=== PATIENT | female | born 1960 | race Two or more races ===

== ENCOUNTER 2018-06-30 09:39 | Emergency (ER) | payer OTHER ==
[~2018-06-30] VITALS: Ht 157.5 cm; Wt 86.2 kg
[2018-06-30] MEDS ORDERED: MECLIZINE HCL 25 MG TAB PO ONE (10:15)
[2018-06-30 10:41] LABS: Basophils # (auto) 0 uL; Basophils % (auto) 0.7 % (0.0-2.0); Eosinophils # (auto) 0.1 uL; Eosinophils % (auto) 1.5 % (0.0-7.0); Hematocrit 42.3 % (36.0-46.0); Hemoglobin 14.4 g/dL (12.2-16.2); Lymphocytes # (auto) 2.3 uL; Lymphocytes % (auto) 34.7 % (10.0-50.0); Mean Corpuscular Hemoglobin 29.7 pg (28.0-32.0); Mean Corpuscular Hgb Conc. 34.1 g/dL (32.0-36.0); Mean Corpuscular Volume 87.1 fL (80.0-100.0); Monocytes # (auto) 0.4 uL; Monocytes % (auto) 6.2 % (0.0-12.0); Neutrophils # (auto) 3.8 uL; Neutrophils % (auto) 56.9 % (37.0-80.0); Nucleated Red Blood Cells % 0.1 %; Platelet Count (auto) 190 10^3/uL (140-450); Red Blood Cells 4.86 10^6/uL (4.0-5.20); White Blood Cell 6.6 10^3/uL (4.4-10.8)
[2018-06-30 11:12] LABS: Alanine Aminotransferase 56 U/L (13-56); Albumin 3.7 g/dL (3.4-5.0); Alkaline Phosphatase 125 U/L (45-117); Anion Gap 5 (5-15); Aspartate Aminotransferase 44 U/L (15-37); BUN/Creatinine Ratio 15.7; Bilirubin, Total 0.9 mg/dL (0.2-1.0); Blood Urea Nitrogen 11 mg/dL (7-18); Calcium 8.3 mg/dL (8.5-10.1); Carbon Dioxide 25 mmol/L (21-32); Chloride 106 mmol/L (98-107); GFR African American 112 mL/min; GFR Non-African American 92 mL/min; Glucose 265 mg/dL (74-106); Potassium 3.7 mmol/L (3.5-5.1); Sodium 136 mmol/L (136-145); Total Protein 7.9 g/dL (6.4-8.2)
[2018-06-30 13:00] VITALS: BP 137/90
== END 2018-06-30 11:56 | disposition home or self-care (01) ==
LOC: ER 09:39
DX: R42 Dizziness and giddiness (principal); E11.9 Type 2 diabetes mellitus without complications; I10 Essential (primary) hypertension
CPT/HCPCS: 36415; 70450; 80053; 84484; 85025; 93005; 99285; J8597

== ENCOUNTER 2020-09-09 17:21 | Emergency (ER) | payer MEDICAID, OTHER ==
[~2020-09-09] VITALS: Ht 157.5 cm; Wt 81.6 kg
[2020-09-09 17:47] VITALS: BP 153/98
== END 2020-09-09 19:06 | disposition home or self-care (01) ==
LOC: ER 17:21
DX: J06.9 Acute upper respiratory infection, unspecified (principal); F41.9 Anxiety disorder, unspecified; E11.9 Type 2 diabetes mellitus without complications; I10 Essential (primary) hypertension; Z98.890 Other specified postprocedural states; Z20.828 Contact with and (suspected) exposure to other viral communicable diseases
CPT/HCPCS: 36415; 71045; 87426; 93005

== ENCOUNTER 2024-07-10 11:28 | Inpatient (IN) | payer MEDICAID ==
[~2024-07-10] VITALS: Ht 157.5 cm; Wt 71.0 kg
[2024-07-10 13:44] LABS: Urine Bacteria None Seen /hpf (None Seen)
[2024-07-10 13:56] LABS: Basophils # (auto) 0 10 ^3/uL (0-0.2); Basophils % (auto) 0.8 % (0.0-2.0); Eosinophils # (auto) 0.3 10 ^3/uL (0-0.8); Eosinophils % (auto) 5.1 % (0.0-7.0); Hematocrit 37.9 % (36.0-46.0); Hemoglobin 13.1 g/dL (12.2-16.2); Lymphocytes # (auto) 1.1 10 ^3/uL (0.4-5.4); Lymphocytes % (auto) 17.2 % (10.0-50.0); Mean Corpuscular Hemoglobin 30.2 pg (28.0-32.0); Mean Corpuscular Hgb Conc. 34.6 g/dL (32.0-36.0); Mean Corpuscular Volume 87.3 fL (80.0-100.0); Monocytes # (auto) 0.4 10 ^3/uL (0-1.3); Monocytes % (auto) 5.9 % (0.0-12.0); Neutrophils # (auto) 4.6 10 ^3/uL (1.6-8.6); Platelet Count (auto) 301 10^3/uL (140-450); Red Blood Cells 4.34 10^6/uL (4.0-5.20); Red Cell Distribution Width 12.9 % (11.8-14.3); White Blood Cell 6.4 10^3/uL (4.4-10.8)
[2024-07-10 13:59] LABS: Urine Blood Negative /uL (Negative); Urine Clarity Clear (Clear); Urine Color Light-Yellow (Yellow); Urine Mucus FEW (None Seen); Urine Protein, UAD Negative (Negative); Urine Specific Gravity 1.018 (1.001-1.035); Urine Urobilinogen Normal (Negative); Urine WBC 1 /hpf (0 - 5); Urine pH 5.5 (5.0-9.0)
[2024-07-10 14:11] LABS: Alanine Aminotransferase 18 U/L (7-40); Albumin 3.8 g/dL (3.2-4.8); Alkaline Phosphatase 79 U/L (46-116); Anion Gap 6 (5-15); Aspartate Aminotransferase 20 U/L (13-40); BUN/Creatinine Ratio 17.5 (10.0-20.0); Bilirubin, Total 0.5 mg/dL (0.2-1.0); Blood Urea Nitrogen 10 mg/dL (9-23); Calcium 9.3 mg/dL (8.7-10.4); Carbon Dioxide 28 mmol/L (20-30); Chloride 104 mmol/L (98-107); Glucose 111 mg/dL (74-106); Potassium 4.2 mmol/L (3.5-5.1); Sodium 138 mmol/L (136-145); Total Protein 7.1 g/dL (5.7-8.2)
[2024-07-10 14:40] LABS: Lactic Acid w/Reflex 2.3 mmol/L (0.4-2.0)
[2024-07-10 15:08] LABS: COVID19 ANTIGEN SOFIA FIA NEGATIVE (NEGATIVE)
[2024-07-10] MEDS: cefTRIAXone 1GM/50ML D5W 50 ML IV ONE (15:24)
[2024-07-10] MEDS: SODIUM CHLORIDE 0.9% 1,000 ML IV ONE (17:09)
[2024-07-10] MEDS ORDERED: DEXTROSE (50%) 50ML SYRG IV PRN (19:00)
[2024-07-10] MEDS ORDERED: HYDROcodone-ACET 5/325MG TAB PO PRN (19:00)
[2024-07-10] MEDS ORDERED: hydrALAZINE HCL 20 MG/ML VL IV PRN (19:00)
[2024-07-10] MEDS ORDERED: ONDANSETRON HCL 4 MG/2 ML VIAL IV PRN (19:00)
[2024-07-10] MEDS ORDERED: ACETAMINOPHEN 325 MG TAB PO PRN (19:00)
[2024-07-10] MEDS ORDERED: DOCUSATE SOD 100 MG CAP PO PRN (19:00)
[2024-07-10] MEDS ORDERED: NITROGLYCERIN 0.4 MG SL TAB SL PRN (19:45)
[2024-07-10] MEDS ORDERED: MORPHINE SULFATE INJ 2 MG/ml SYRG IV PRN (19:45)
[2024-07-10 20:24] VITALS: PULSE 92; RESP 16; O2SAT 97
[2024-07-10] MEDS: SODIUM CHLORIDE 0.9% 1,000 ML IV SCH (20:24)
[2024-07-10] MEDS: ACCU-CHEK COMFORT CURVE STRIP VI SCH (22:00)
[2024-07-10] MEDS: InsuLIN REG 1unit/0.01ml Soln (100units/ml) SC SCH (22:37)
[2024-07-11] VITALS (11 sets, daily range): BP systolic 119–131; BP diastolic 61–90; PULSE 78–97; RESP 16–18; TEMP 97.9–98.3; O2SAT 94–97
[2024-07-11 05:40] LABS: Rapid Influenza A Negative (Negative); Rapid Influenza B Negative (Negative)
[2024-07-11] MEDS ORDERED: LEVALBUTEROL HCL 1.25 MG/3 ML NEB NEB PRN (07:45)
[2024-07-11] MEDS ORDERED: IPRATROPIUM BROM 0.5 MG/2.5ML INH SOL NEB PRN (07:45)
[2024-07-11] MEDS ORDERED: LEVALBUTEROL HCL 1.25 MG/3 ML NEB NEB SCH (07:45)
[2024-07-11] MEDS: cefTRIAXone 1GM/50ML D5W 50 ML IV SCH (09:00)
[2024-07-11] MEDS: AZITHROMYCIN 500MG/ 250ML 250 ML IV SCH (09:59)
[2024-07-11] MEDS: INSULIN LANTUS (GLARGINE) 1 /0.01ml (100units/ml) SC SCH (10:00)
[2024-07-11] MEDS: LOSARTAN POTASSIUM 50 MG TAB PO SCH (10:00)
[2024-07-11] MEDS: ASPirin 81 mg TAB PO SCH (10:00)
[2024-07-11 12:05] LABS: Alanine Aminotransferase 20 U/L (7-40); Albumin 3.2 g/dL (3.2-4.8); Alkaline Phosphatase 66 U/L (46-116); Anion Gap 6 (5-15); Aspartate Aminotransferase 18 U/L (13-40); BUN/Creatinine Ratio 16.7 (10.0-20.0); Blood Urea Nitrogen 10 mg/dL (9-23); Calcium 8.4 mg/dL (8.7-10.4); Carbon Dioxide 24 mmol/L (20-30); Chloride 107 mmol/L (98-107); Glucose 253 mg/dL (74-106); Potassium 3.6 mmol/L (3.5-5.1); Sodium 137 mmol/L (136-145)
[2024-07-11 12:06] LABS: Bilirubin, Total 0.4 mg/dL (0.2-1.0); Total Protein 6.3 g/dL (5.7-8.2)
[2024-07-11 12:16] LABS: Basophils # (auto) 0 10 ^3/uL (0-0.2); Basophils % (auto) 0.9 % (0.0-2.0); Eosinophils # (auto) 0.3 10 ^3/uL (0-0.8); Eosinophils % (auto) 5.3 % (0.0-7.0); Hematocrit 33.9 % (36.0-46.0); Hemoglobin 11.8 g/dL (12.2-16.2); Lymphocytes # (auto) 0.8 10 ^3/uL (0.4-5.4); Lymphocytes % (auto) 16.3 % (10.0-50.0); Mean Corpuscular Hemoglobin 30.4 pg (28.0-32.0); Mean Corpuscular Hgb Conc. 34.8 g/dL (32.0-36.0); Mean Corpuscular Volume 87.5 fL (80.0-100.0); Monocytes # (auto) 0.4 10 ^3/uL (0-1.3); Monocytes % (auto) 7.2 % (0.0-12.0); Neutrophils # (auto) 3.4 10 ^3/uL (1.6-8.6); Neutrophils % (auto) 70.3 % (37.0-80.0); Nucleated Red Blood Cells % 0.1 %; Platelet Count (auto) 270 10^3/uL (140-450); Red Blood Cells 3.88 10^6/uL (4.0-5.20); Red Cell Distribution Width 13.2 % (11.8-14.3); White Blood Cell 4.9 10^3/uL (4.4-10.8)
[2024-07-11] MEDS: methylPREDNISolone SOD SUCC 40 MG/ML VL IV SCH (13:07)
[2024-07-11] MEDS: DOXYCYCLINE 100MG/250ML 250 ML IV SCH (13:07)
[2024-07-11] MEDS: ERGOCALCIFEROL 50,000 UNIT(1.25MG) CAP PO SCH (16:57)
[2024-07-12] VITALS (7 sets, daily range): BP systolic 117–127; BP diastolic 72–77; PULSE 59–84; RESP 14–18; TEMP 97.6–98.7; O2SAT 95–100
[2024-07-12] MEDS ORDERED: POTASSIUM CHL 20MEQ/100ML 100 ML IV ONE (07:00)
[2024-07-12] MEDS: POTASSIUM CHL 10 Meq TABLET PO ONE (10:20)
[2024-07-12] MEDS: MAGNESIUM SULFATE 1GM/100ML 100 ML IV ONE (10:21)
[2024-07-12] MEDS: INSULIN LANTUS (GLARGINE) 1 /0.01ml (100units/ml) SC SCH (10:38)
[2024-07-12 10:50] LABS: Basophils # (auto) 0 10 ^3/uL (0-0.2); Basophils % (auto) 0.2 % (0.0-2.0); Eosinophils # (auto) 0 10 ^3/uL (0-0.8); Eosinophils % (auto) 0.1 % (0.0-7.0); Hematocrit 32.3 % (36.0-46.0); Hemoglobin 11.2 g/dL (12.2-16.2); Lymphocytes # (auto) 1.1 10 ^3/uL (0.4-5.4); Lymphocytes % (auto) 13.6 % (10.0-50.0); Mean Corpuscular Hemoglobin 30.3 pg (28.0-32.0); Mean Corpuscular Hgb Conc. 34.6 g/dL (32.0-36.0); Mean Corpuscular Volume 87.6 fL (80.0-100.0); Monocytes # (auto) 0.5 10 ^3/uL (0-1.3); Monocytes % (auto) 6.3 % (0.0-12.0); Neutrophils # (auto) 6.6 10 ^3/uL (1.6-8.6); Neutrophils % (auto) 79.8 % (37.0-80.0); Nucleated Red Blood Cells % 0.2 %; Platelet Count (auto) 272 10^3/uL (140-450); Red Blood Cells 3.68 10^6/uL (4.0-5.20); Red Cell Distribution Width 12.9 % (11.8-14.3); White Blood Cell 8.3 10^3/uL (4.4-10.8)
[2024-07-12 11:18] LABS: Anion Gap 6 (5-15); Carbon Dioxide 25 mmol/L (20-30); Chloride 105 mmol/L (98-107); Potassium 3.8 mmol/L (3.5-5.1); Sodium 136 mmol/L (136-145)
[2024-07-12 11:23] LABS: Glucose 261 mg/dL (74-106)
[2024-07-12 11:24] LABS: BUN/Creatinine Ratio 16.1 (10.0-20.0); Blood Alcohol < 3.0 mg/dL (<10); Blood Urea Nitrogen 10 mg/dL (9-23)
[2024-07-12 12:10] LABS: Urine Bacteria None Seen /hpf (None Seen); Urine WBC None Seen /hpf (0 - 5)
[2024-07-12 12:19] LABS: Urine Blood Negative /uL (Negative); Urine Clarity Clear (Clear); Urine Color Colorless (Yellow); Urine Protein, UAD Negative (Negative); Urine Specific Gravity 1.003 (1.001-1.035); Urine Urobilinogen Normal (Negative)
[2024-07-12 12:31] LABS: Amphetamine Screen, Urine Neg (NEGATIVE); Barbiturate Scree,Urine Neg (NEGATIVE); Benzodiazephine Screen, Urine Neg (NEGATIVE); Cocaine Screen, Urine Neg (NEGATIVE)
[2024-07-12 12:32] LABS: Cannabinoid Screen, Urine Neg (NEGATIVE); Opiate Scree,Urine Neg (NEGATIVE); Phencyclidine Screen, Urine Neg (NEGATIVE)
[2024-07-12] MEDS: InsuLIN REG 1unit/0.01ml Soln (100units/ml) SC SCH (13:04)
[2024-07-12] MEDS ORDERED: PRED20TA2 PO ×2 (15:27→15:28)
[2024-07-12] MEDS ORDERED: ERGO1CAP23 PO (15:27)
[2024-07-12] MEDS ORDERED: ACET-1882 PO (15:27)
[2024-07-12] MEDS ORDERED: ASPI-325 PO (15:27)
[2024-07-12] MEDS ORDERED: LOSA-534 PO (15:27)
[2024-07-12] MEDS ORDERED: AZIT-185 PO (15:27)
[2024-07-12] MEDS ORDERED: CEPH250C PO (15:27)
[2024-07-12] MEDS ORDERED: INSLANTI SC (15:27)
[2024-07-12] MEDS ORDERED: PANT40T PO (15:27)
[2024-07-12] MEDS ORDERED: InsuLIN REG 1unit/0.01ml Soln (100units/ml) SC SCH (22:00)
[2024-07-16 21:06] LABS: Legionella pneumophila Abs Non Reactive (Non Reactive); Mycoplasma pneumoniae IgG Ab 110 U/mL (0-99); Mycoplasma pneumoniae IgM Ab <770 U/mL (0-769)
== END 2024-07-12 18:27 | disposition home or self-care (01) | DRG 142 ==
LOC: ER 11:28 → TELE 19:38 → TELE-EAST 07-11 03:18 → EAST 07-11 09:02
PROVIDERS: ADMIT Internal Medicine Pulmonary Disease; ATTEND Emergency Medicine
DX: J82.82 Acute eosinophilic pneumonia (principal); J15.69 Pneumonia due to other Gram-negative bacteria; E87.20 Acidosis, unspecified; J84.89 Other specified interstitial pulmonary diseases; R91.1 Solitary pulmonary nodule; I10 Essential (primary) hypertension; I16.1 Hypertensive emergency; R79.89 Other specified abnormal findings of blood chemistry; E11.65 Type 2 diabetes mellitus with hyperglycemia; R06.03 Acute respiratory distress; E66.9 Obesity, unspecified; E55.9 Vitamin D deficiency, unspecified; Z20.822 Contact with and (suspected) exposure to COVID-19; Z68.28 Body mass index [BMI] 28.0-28.9, adult
CPT/HCPCS: 36415; 71045; 71275; 76604; 80048; 80053; 80307; 80320; 81001; 82306; 82607; 82962; 83036; 83605; 83735; 83880; 84484; 85025; 85379; 86703; 86738; 87081; 87278; 87426; 87804; 93970; G0378; J1815; J3490

== ENCOUNTER 2025-10-14 14:11 | Inpatient (IN) | payer MEDICAID ==
[~2025-10-14] VITALS: Ht 157.5 cm; Wt 78.0 kg
[~2025-10-14 14:11] MED LIST: ACET-1882 PO; ASPI-325 PO; AZIT-185 PO; CEPH250C PO; ERGO1CAP23 PO; INSLANTI SC; LOSA-534 PO; PANT40T PO; PRED20TA2 PO
--- NOTE | 2025-10-14 15:26 | ED.PDOC ---
SOB-HPI HPI Comments A 65 year old female with PMHx of DM and HTN presents to the emergency d [facility] for chief complaint of shortness of breath that began 3 days ago. Pt reports that they have chest pain, phlegm, and consistent cough. Patient denies associated symptoms dizziness, fever, headache, chills, or syncope. Chief Complaint: Shortness of Breath Time Seen by MD: 15:13 Primary Care Provider: DOES KNOW NAME Reviewed notes: Nurses Notes, Medications, Allergies Mode of Arrival: Ambulatory Severity: Moderate Timing: Hours Duration: Since onset Context: At Rest History of: None Prehospital treatment: None Associated Signs and Symptoms: None Quality: Pressure Radiation: No Radiation Past Medical History PAST MEDICAL HISTORY: DM, HTN Surgical History: PHARMACY INTERN History: Denies all PHARMACY INTERN Hx Family History Family History: Unknown Social History Smoker: Non-Smoker Alcohol: Denies ETOH Use Drugs: Denies Drug Use Lives In: Home Physical Exam General Appearance: Moderate Distress HEENT: Normal ENT Inspection, Pharynx Normal, TMs Normal Neck: Full Range of Motion, Non-Tender, Normal, Normal Inspection Respiratory: Chest Non-Tender, Lungs Clear, No Accessory Muscle Use, No Respiratory Distress, Normal Breath Sounds Cardiovascular: No Edema, No JVD, No Murmur, No Gallop, Normal Peripheral Pulses, Regular Rate/Rhythm Breast Exam: Deferred Gastrointestinal: No Organomegaly, Non Tender, No Pulsatile Mass, Normal Bowel Sounds, Soft Genitalia: Deferred Pelvic: Deferred Rectal: Deferred Extremities: No calf tenderness, Normal capillary refill, Normal inspection, Normal range of motion, Non-tender, No pedal edema Musculoskeletal : Apperance: Normal Neurologic: Alert, water filter cleaner II-XII nml as Tested, No Motor Deficits, Normal Affect, Normal Mood, No Sensory Deficits Cerebellar Function: Normal Reflexes: Normal Skin: Dry, Normal Color, Warm Peripheral Pulses: 3+ Radial (R), 3+ Radial (L) Lymphatic: No Adenopathy Was a procedure done? Was a procedure done?: No Differential Dx Differential Diagnosis: Anxiety, Asthma, Bronchitis, CHF, COPD X-Ray, Labs, Meds, VS Vital Signs Date Time Temp Pulse Resp B/P (MAP) Pulse Ox O2 Delivery O2 Flow Rate FiO2 10/14/25 14:22 118 10/14/25 14:13 97.3 124 18 134/80 93 97.3 Patient alert. Came in because of chest pain. Vitals stable. Answering questions. Risk factors for coronary artery disease. Was given aspirin. Was given nitro. EKG reviewed does not show any acute changes. Continue monitoring. Time of 1ST Reevaluation: 15:43 Reevaluation 1ST: Unchanged Patient Education/Counseling: Diagnosis, Treatment, Need For Follow Up Family Education/Counseling: Diagnosis, Treatment, Need For Follow Up, No Family Present SEPSIS Sepsis Screen Date sepsis recognized/suspect: Oct 14, 2025 Time Sepsis recognized/suspect: 1412 Recent Procedure: No On Antibiotic Therapy: No Respiratory Rate >20: No Heart Rate >90: Yes (124) Temp<36 C (96.8 F) or >38.3 C: No SBP <90 or MAP <65 mmHG: No New Acute Mental Status Change: No Is the patient on CPAP, BIPAP,: No Physician Orders Electrocardigram (10/14/25 14:31) Troponin-I Hs (10/14/25 15:29) Complete Blood Count (10/14/25 15:29) Chest Portable (10/14/25 15:29) Urinalysis (10/14/25 15:29) Basic Metabolic Panel (10/14/25 15:29) Troponin-I Hs (10/14/25 16:29) Troponin-I Hs (10/14/25 18:29) Vital Signs Date Time Temp Pulse Resp B/P (MAP) Pulse Ox O2 Delivery O2 Flow Rate FiO2 10/14/25 14:22 118 10/14/25 14:13 97.3 124 18 134/80 93 97.3 Departure 1 Departure Time of Disposition: 15:46 Impression: Primary Impression: Chest pain of unknown etiology Additional Impression: Pneumonitis Disposition: 09 ADMITTED INPATIENT Admit to: Med Surg Condition: Guarded Critical Care Note Critical Care Time?: No Stability Stability form required: No Heart Score Heart Score: Heart Score Response (Comments) Value History Slightly Suspicious 0 EKG Normal 0 Age >65 2 Risk Factors >3 or Hx ASHD 2 Troponin Normal limit 0 Total 4 I personally scribed for VAN CHARLES MD ([email or web address]) on 10/14/25 at 15:26. Electronically submitted by Muna Tan ([email or web address]). I personally scribed for VAN CHARLES MD ([email or web address]) on 10/14/25 at 15:35. Electronically submitted by Muna Tan ([email or web address]). VAN CHARLES MD Oct 14, 2025 15:26
[2025-10-14 16:16] LABS: Hematocrit 38.3 % (36.0-46.0); Hemoglobin 13.4 g/dL (12.2-16.2); Mean Corpuscular Hemoglobin 29.9 pg (28.0-32.0); Mean Corpuscular Volume 85.3 fL (80.0-100.0); Nucleated Red Blood Cells % 0.0 %
--- NOTE | 2025-10-14 16:19 | DVH ---
CHEST RADIOGRAPH INDICATION: sob TECHNIQUE: Single frontal view of the chest was obtained COMPARISON: IH-X-RAY, CHEST PA on DOS: 10/04/25, XY CHEST PORTABLE on DOS: 07/10/24, CHEST PORTABLE on DOS: 09/09/20 FINDINGS: Lines and Tubes: None Lungs: Bilateral pulmonary masses are noted consistent with metastatic disease. Previous chest x-rays are not available for comparison. There is a previous report noting the bilateral masses however measurements were not made. Pleura: No effusion. No pneumothorax. Cardiomediastinal contours: Unremarkable Bones: No acute osseous abnormality. IMPRESSION: 1. Bilateral pulmonary masses consistent with metastatic disease 2. No prior studies for comparison only a previous report in which there were no measurements made.
[2025-10-14 16:22] LABS: Chloride 99 mmol/L (98-107); Potassium 4.3 mmol/L (3.5-5.1); Sodium 136 mmol/L (136-145)
[2025-10-14 16:23] LABS: Anion Gap 8 (5-15); Carbon Dioxide 29 mmol/L (20-31)
[2025-10-14 16:24] LABS: Calcium 9.6 mg/dL (8.7-10.4)
[2025-10-14 16:29] LABS: BUN/Creatinine Ratio 13.9 (10.0-20.0); Blood Urea Nitrogen 11 mg/dL (9-23); Glucose 302 mg/dL (74-106)
[2025-10-14] MEDS ORDERED: DEXTROSE (50%) 50ML SYRG IV PRN (19:45)
[2025-10-14] MEDS ORDERED: ONDANSETRON HCL 4 MG/2 ML VIAL IV PRN (19:45)
[2025-10-14] MEDS ORDERED: IPRATROPIUM BROM 0.5 MG/2.5ML INH SOL NEB PRN (19:45)
[2025-10-14] MEDS ORDERED: ALBUTEROL SULF 2.5 MG/0.5ML(0.5%) NEB SOLN NEB PRN (19:45)
--- NOTE | 2025-10-14 21:40 | DVHHP2 ---
History of Present Illness Reason for Visit: Shortness for breath History of Present Illness 65-year-old female presents for evaluation of shortness for breath. Patient reports worsening shortness for breath with a cough. She states being diagnosed with possible pulmonary mass last year. She had a biopsy ordered two months ago by her user experience architect which she states showed to be inconclusive. Denies recent weight loss. Reports occasional chills. No chest pain. No other acute complaints reported. Past Medical History Hypertension, diabetes mellitus,? lung CA Past Surgical History Family History Noncontributory Smoke: No ALCOHOL: none Drugs: None Lives: with Family Review of Systems Review of Systems Review of systems are currently negative otherwise addressed in HPI. Allergies: Coded Allergies: NO KNOWN ALLERGIES (Unverified , 06/30/18) Medications Current Medications Medications Dose Ordered Sig/Nicole Route Start Time Stop Time Status Last Admin Dose Admin Losartan Potassium 50 mg DAILY PO 10/15/25 10:00 UNV Aspirin 81 mg DAILY PO 10/15/25 10:00 UNV Albuterol 2.5 mg Q6HPRN PRN NEB 10/14/25 19:45 UNV Ipratropium [place] 0.5 mg Q6HPRN PRN NEB 10/14/25 19:45 UNV Diagnostic Test (Pha) 1 strip ACHS 10/14/25 22:00 UNV Insulin Human Regular ACHS SC 10/14/25 22:00 UNV Dextrose 50 ml UD PRN IV 10/14/25 19:45 UNV Ondansetron HCl 4 mg Q4HP PRN IV 10/14/25 19:45 UNV Acetaminophen 650 mg Q6HP PRN PO 10/14/25 19:45 UNV Exam Vital Signs Vital Signs Date Time Temp Pulse Resp B/P (MAP) Pulse Ox O2 Delivery O2 Flow Rate FiO2 10/14/25 14:22 118 10/14/25 14:13 97.3 18 134/80 93 97.3 Exam Gen: 65-year-old female in mild distress Skin: Warm, dry, normal color and texture, no rash. HEENT: Normocephalic atraumatic, mucous membranes moist and pink. Neck: Cervical and supraclavicular nodes normal without enlargement, trachea is midline, thyroid gland is normal without masses. Pulmonary: Clear to auscultation and percussion bilaterally. Cardiac: Regular rate and rhythm. No murmur Abdomen: Soft, nontender, nondistended, bowel sounds present all 4 quadrants, no guarding, no rigidity, no organomegaly. Extremities: No cyanosis, clubbing, no edema Neuro: Cranial nerves II through XII grossly intact, normal affect and speech, no focal motor deficits. Labs/Xrays ORDERING PHYSICIAN: VAN CHARLES MD PROCEDURE(s): CXRP - CHEST PORTABLE REASON: sob ORDER NUMBER(s): [id number], ACCESSION NUMBER(s): [id number] CHEST RADIOGRAPH INDICATION: sob TECHNIQUE: Single frontal view of the chest was obtained COMPARISON: IH-X-RAY, CHEST PA on DOS: 10/04/25, XY CHEST PORTABLE on DOS: 07/10/24, CHEST PORTABLE on DOS: 09/09/20 FINDINGS: Lines and Tubes: None Lungs: Bilateral pulmonary masses are noted consistent with metastatic disease. Previous chest x-rays are not available for comparison. There is a previous report noting the bilateral masses however measurements were not made. Pleura: No effusion. No pneumothorax. Cardiomediastinal contours: Unremarkable Bones: No acute osseous abnormality. IMPRESSION: 1. Bilateral pulmonary masses consistent with metastatic disease 2. No prior studies for comparison only a previous report in which there were no measurements made. Labs Test 10/14/25 16:46 10/14/25 15:55 Range/Units Troponin I High Sensitivity 3 L </=34 ng/L White Blood Count 9.7 4.4-10.8 10^3/uL Red Blood Count 4.48 4.0-5.20 10^6/uL Hemoglobin 13.4 12.2-16.2 g/dL Hematocrit 38.3 36.0-46.0 % Mean Corpuscular Volume 85.3 80.0-100.0 fL Mean Corpuscular Hemoglobin 29.9 28.0-32.0 pg Mean Corpuscular Hemoglobin Concent 35.1 32.0-36.0 g/dL Red Cell Distribution Width 13.3 11.8-14.3 % Platelet Count 246 140-450 10^3/uL Mean Platelet Volume 8.8 6.9-10.8 fL Neutrophils (%) (Auto) 70.9 37.0-80.0 % Lymphocytes (%) (Auto) 19.6 10.0-50.0 % Monocytes (%) (Auto) 8.5 0.0-12.0 % Eosinophils (%) (Auto) 0.3 0.0-7.0 % Basophils (%) (Auto) 0.7 0.0-2.0 % Neutrophils # (Auto) 6.9 1.6-8.6 10 ^3/uL Lymphocytes # (Auto) 1.9 0.4-5.4 10 ^3/uL Monocytes # (Auto) 0.8 0-1.3 10 ^3/uL Eosinophils # (Auto) 0 0-0.8 10 ^3/uL Basophils # (Auto) 0.1 0-0.2 10 ^3/uL Nucleated Red Blood Cells 0.0 % Sodium Level 136 136-145 mmol/L Potassium Level 4.3 3.5-5.1 mmol/L Chloride Level 99 98-107 mmol/L Carbon Dioxide Level 29 20-31 mmol/L Anion Gap 8 5-15 Blood Urea Nitrogen 11 9-23 mg/dL Creatinine 0.79 0.550-1.02 mg/dL Glomerular Filtration Rate Calc 84 >90 mL/min BUN/Creatinine Ratio 13.9 10.0-20.0 Serum Glucose 302 H 74-106 mg/dL Calcium Level 9.6 8.7-10.4 mg/dL SEPSIS Sepsis Screen Date sepsis recognized/suspect: Oct 14, 2025 Time Sepsis recognized/suspect: 1413 Recent Procedure: No On Antibiotic Therapy: No Respiratory Rate >20: No Heart Rate >90: Yes (124) Temp<36 C (96.8 F) or >38.3 C: No SBP <90 or MAP <65 mmHG: No New Acute Mental Status Change: No Is the patient on CPAP, BIPAP,: No Physician Orders Electrocardigram (10/14/25 14:31) Chest Portable (10/14/25 15:29) Urinalysis (10/14/25 15:29) Losartan Tablet (Cozaar Tablet) (10/15/25 10:00) Aspirin Tablet (10/15/25 10:00) Albuterol Medneb (Ventolin Medneb) (10/14/25 19:45) Ipratropium Medneb (Atrovent Medneb) (10/14/25 19:45) Glucose Blood (Accu-Chek Comfort Curve T (10/14/25 22:00) Insulin R (Human) (Insulin R) (10/14/25 22:00) Dextrose 50% Syringe (10/14/25 19:45) Admit (10/14/25 19:45) Ondansetron Hcl (Zofran) (10/14/25 19:45) Cardiac Diet-2gna,Lofat,Lochol (10/15/25 Breakfast) Condition: Stable (10/14/25 19:45) Acetaminophen Tablet (Tylenol Tablet) (10/14/25 19:45) Bedrest With Bathroom Privileg (10/14/25 19:45) D-Dimer (10/14/25 21:34) *Consult (10/14/25 21:34) * Radiologist Consult (10/14/25 21:34) Lactic Acid W/ Reflex Order (10/14/25 21:34) Vital Signs Date Time Temp Pulse Resp B/P (MAP) Pulse Ox O2 Delivery O2 Flow Rate FiO2 10/14/25 14:22 118 10/14/25 14:13 97.3 124 18 134/80 93 97.3 Laboratory Tests Test 10/14/25 15:55 White Blood Count 9.7 10^3/uL (4.4-10.8) Assessment/Plan Assessment/Plan Assessment Acute respiratory distress ? Lung CA Possible metastases Diabetes mellitus Hypertension Plan Admit the patient to [facility] to the hospitalist Get whalen Pulmonary consult Radiology consult for possible biopsy Resume home medications Continue treatment per orders Plan discussed with: Patient My Orders Orders - JACOB YOUNG [facility] Procedure Category Date Status Time Losartan Tablet PHA 10/15/25 Logged (Cozaar Tablet) 10:00 Aspirin Tablet PHA 10/15/25 Logged 10:00 Albuterol Medneb PHA 10/14/25 Logged (Ventolin Medneb) 19:45 Ipratropium Medneb PHA 10/14/25 Logged (Atrovent Medneb) 19:45 Glucose Blood PHA 10/14/25 Logged (Accu-Chek Comfort 22:00 Insulin R (Human) PHA 10/14/25 Logged (Insulin R) 22:00 Dextrose 50% Syringe PHA 10/14/25 Logged 19:45 Admit ADMIT 10/14/25 Transmitted 19:45 Ondansetron Hcl PHA 10/14/25 Logged (Zofran) 19:45 Cardiac DIET 10/15/25 Transmitted Diet-2gna,Lofat,Lochol Breakfast Condition: Stable BALAJI 10/14/25 In Process 19:45 Acetaminophen Tablet PHA 10/14/25 Logged (Tylenol Tablet) 19:45 Bedrest With Bathroom BALAJI 10/14/25 In Process Privileg 19:45 D-Dimer LAB 10/14/25 Transmitted 21:34 *Consult CONS 10/14/25 Verified 21:34 * Radiologist Consult CONS 10/14/25 Verified 21:34 Lactic Acid W/ Reflex LAB 10/14/25 Verified Order 21:34 Date of Service: Oct 14, 2025 Billing Provider: JACOB YOUNG Common Visit Codes: [id number] INP/OBS CARE (HIGH) JACOB YOUNG Oct 14, 2025 21:40
[2025-10-14] MEDS: ACCU-CHEK COMFORT CURVE STRIP VI SCH (22:00)
[2025-10-14] MEDS: InsuLIN REG 1unit/0.01ml Soln (100units/ml) SC SCH (22:00)
[2025-10-14 22:33] VITALS: BP 105/76; PULSE 104; RESP 16; TEMP 98.4; O2SAT 94
[2025-10-15] VITALS (7 sets, daily range): BP systolic 102–121; BP diastolic 76–81; PULSE 97–113; RESP 16–20; TEMP 97.3–98; O2SAT 93–100
[2025-10-15 04:22] LABS: Urine Protein, UAD 1+ (Negative)
[2025-10-15] MEDS: IOHEXOL 350 MG/ML 100ML IJ ONE (08:26)
[2025-10-15 10:01] LABS: INR 1.07 (0.9-1.15); Partial Thromboplastin Time 28.2 SEC (24.5-34.5); Prothrombin Time 11.3 sec (9.3-11.8)
[2025-10-15 10:04] LABS: Alanine Aminotransferase 11.0 U/L (7-40); Alkaline Phosphatase 79.0 U/L (46-116); Total Protein 7.9 g/dL (5.7-8.2)
[2025-10-15 10:05] LABS: Albumin 4.6 g/dL (3.2-4.8)
[2025-10-15 10:06] LABS: Bilirubin, Direct 0.4 mg/dL (<0.3); Bilirubin, Total 1.4 mg/dL (0.2-1.0)
--- NOTE | 2025-10-15 10:09 | DVH ---
INDICATION: Possible metastatic disease TECHNIQUE: CT axial images of the chest, abdomen and pelvis are obtained with intravenous contrast. Coronal and sagittal reformats were obtained. Radiation Dose Information: CTDI volume is 23.29 mGy. Dose-length product is 1695.87 mGy*cm COMPARISON: Chest radiograph from 10/14/2025 FINDINGS: No evidence for large defect within the main left and right pulmonary arteries. Trachea patent. No pneumothorax. Numerous pulmonary nodules / masses consistent with malignancy / metastatic disease. Some of these include right upper lobe lesion measuring 3.9 cm, right hilar/ infrahilar lesion measuring 3.6 cm, right lower lobe lesion measuring 2.8 cm, right upper lobe lesion measuring 1.8 cm left lower lobe mass measuring 6.0 cm, left upper lobe mass measuring 5.5 cm. The left pulmonary mass encases the left main pulmonary artery, bronchi. There is left upper and lower lobe airspace consolidation , likely secondary to underlying malignancy/ bronchial obstruction. Heart normal in size.There is a tiny left pleural effusion. 1.9 cm subcarinal lymph node. No supraclavicular or axillary lymphadenopathy. 1.1 cm indeterminate left adrenal nodule. Right adrenal gland unremarkable. Spleen, pancreas unremarkable. No enhancing hepatic lesion. No CT evidence for cholelithiasis. No hydronephrosis. Small hiatal hernia. Small bowel loops are normal in caliber. Moderate volume stool in the colon. No secondary signs for appendicitis. Abdominal aortic atherosclerotic disease. Mild eccentric mural wall thrombus. Bladder partially distended. Prominent periuterine veins. No free pelvic fluid. No inguinal lymphadenopathy. [id number] bilateral sacroiliac degenerative joint disease. IMPRESSION: Multiple pulmonary masses / nodules most pronounced in the left lung measuring up to 6.0 cm consistent with pulmonary neoplasm/ metastatic disease. Left upper and lower lobe airspace consolidation likely secondary to underlying bronchial obstruction from the pulmonary masses. Tiny left pleural effusion. Mediastinal lymphadenopathy Indeterminate left adrenal nodule measuring 1.1 cm. Recommend MRI abdomen, adrenal mass protocol to further characterize. No evidence for large pulmonary embolism. Other findings as described.
[2025-10-15] MEDS: IPRATROPIUM BROM 0.5 MG/2.5ML INH SOL NEB ONE (10:29)
[2025-10-15] MEDS: ALBUTEROL SULF 2.5 MG/0.5ML(0.5%) NEB SOLN NEB ONE (10:29)
[2025-10-15 10:54] LABS: COVID19 ANTIGEN SOFIA FIA NEGATIVE (NEGATIVE)
[2025-10-15] MEDS: LOSARTAN POTASSIUM 50 MG TAB PO SCH (11:18)
[2025-10-15] MEDS ORDERED: METF-372 PO (14:15)
--- NOTE | 2025-10-15 15:14 | DVHPNRES ---
Progress Note Date Seen: Oct 15, 2025 Resident Creating Document: LISA FERRARO RESIDENT Medical Necessity Reason Pt with a Central, PICC or Fol: No Subjective Review of Systems Ms. Mcgee is a 65-year-old female with prior medical history of type 2 diabetes mellitus, hyperlipidemia, and GERD, who presents today with chief complaint of cough and shortness of breath. The patient states she underwent a biopsy for a lung mass at [facility] 2 months ago, which was inconclusive, and since then has had persistent cough. She refers that in the last week the cough has gotten progressively worse, with increased clear phlegm expectoration, and shortness of breath on exertion. Additionally refers subjective fever and generalized weakness. She denies chest pain, nausea, vomiting, palpitations, hemoptysis, weight loss, and decreased appetite. Due to persistence of symptoms she presented to the ED for evaluation. On evaluation in the ED, she is afebrile, tachycardic, slightly hypertensive, saturating adequately on room air. Initial labs significant for hyperglycemia and slightly elevated total bilirubin. Chest xray is significant for bilateral pulmonary masses consistent with metastatic disease. The patient was admitted for further work up and monitoring. PSH: , bilateral tubal ligation Allergies: Denies Social: denies drug, alcohol, or tobacco use PCP: Dr. Errol Garibay 10/15/2025: Patient seen at bedside. She complains of persistent cough. Currently denies shortness of breath, chest pain, hemoptysis, fever, nausea, and vomiting. CT chest/abdomen/pelvis w contrast is significant for multiple ulmonary masses nodules consistent with pulmonary neoplasm/metastatic disease, left upper and lower lobe airspace consolidation likely secondary to underlying bronchial obstruction from the pulmonary masses. IR has been consulted for biopsy. Review of Systems: Constitutional: Denies weight loss, fever and chills. HEENT: Denies changes in vision and hearing. Respiratory: refers productive cough with shortness of breath on exertion Cardiovascular: Denies chest discomfort or palpitations GI: Denies abdominal distention, abdominal pain, diarrhea : Denies dysuria and urinary frequency. Musculoskeletal: denies Skin: Denies rash and pruritus. Neurological: denies dizziness headache vision or hearing problems Objective vital signs Vital Sign Date Time Temp Pulse Resp B/P (MAP) Pulse Ox O2 Delivery O2 Flow Rate FiO2 10/15/25 13:00 98.0 113 16 102/76 (85) 93 98.0 10/15/25 10:29 Room Air 0.0 10/15/25 10:29 21 medications Current Medications Medications Dose Ordered Sig/Nicole Route Start Time Stop Time Status Last Admin Dose Admin Losartan Potassium 50 mg DAILY PO 10/15/25 10:00 10/15/25 11:18 50 MG Aspirin 81 mg DAILY PO 10/15/25 10:00 10/15/25 11:17 81 MG Albuterol 2.5 mg Q6HPRN PRN NEB 10/14/25 19:45 Ipratropium [place] 0.5 mg Q6HPRN PRN NEB 10/14/25 19:45 Diagnostic Test (Pha) 1 strip ACHS 10/14/25 22:00 10/15/25 11:54 1 STRIP Insulin Human Regular ACHS SC 10/14/25 22:00 10/15/25 12:00 6 UNITS Dextrose 50 ml UD PRN IV 10/14/25 19:45 Ondansetron HCl 4 mg Q4HP PRN IV 10/14/25 19:45 Acetaminophen 650 mg Q6HP PRN PO 10/14/25 19:45 Examination General: The patient alert and oriented in person place and time. Patient following commands HEENT: Normocephalic, atraumatic, normal reactive pupils, EOM intact, pink conjunctiva, pink moist mucous membrane Respiratory/pulmonary: Bilateral chest expansion, no pain on palpation of chest wall, wheezing is heard in bilateral lung patton, decreased breath sounds in lower lung field Cardiovascular: Normal RRR, normal S1 and S2, no murmurs Abdomen: Abdomen nondistended, normal bowel sounds, soft, there is no pain to palpation in any of the abdominal quadrants, no palpable masses. Extremities: No deformities, there is no peripheral edema present at the lower extremities, normal pulses Skin: No rashes or pruritus, there is no sacral edema present at this time. Neurological: Intact cranial nerves with no focal neurologic deficits laboratory and microbiology Laboratory Tests 10/14/25 15:55 Test 10/14/25 15:55 Range/Units Serum Glucose 302 H 74-106 mg/dL Problem List/Assessment/Plan Problem List/Assessment/Plan Assessment and Plan Acute cough and shortness of breath likely due to Pulmonary Neoplasm Pleural effusion - CT chest/abdomen/pelvis: multiple pulmonary masses / nodules most pronounced in the left lung measuring up to 6 cm consistent with pulmonary neoplasm/ metastatic disease, left upper and lower lung airspace consolidation likely secondary to underlying bronchial obstruction from the pulmonary masses, tiny left pleural effusion - Interventional Radiology has been consulted for biopsy - Ipratropium 0.5 mg medneb q 6 hours PRN - Albuterol 2.5 mg medneb q 6 hours PRN Pulmonary embolism, ruled out - CT C/A/P: No evidence for large pulmonary embolism Type 2 diabetes mellitus with hyperglycemia, HbA1c 7.3 - SSI - Accu- cheks - Consistent carb diet Hypertension - Losartan 50 mg PO daily GERD - Protonix 40 mg PO daily Nutrition: Consistent carb GI prophylaxis: Protonix 40 mg PO daily DVT prophylaxis: Held pending evaluation by IR for possible biopsy Goals of care discussed with the patient for over 35 minutes. Advanced directive and code status discussed at length, FULL CODE. Case discussed with Dr. Wilcox Plan discussed with: Patient, Other (Nurse (Afshan)) Visit Coding STANDARD RES Billing Provider: CORNELIO WILCOX MD Date of Service if different f: Oct 15, 2025 Common Visit Codes: [id number] INP/OBS CARE(HIGH) LISA FERRARO RESIDENT Oct 15, 2025 15:14 CORNELIO WILCOX MD Oct 22, 2025 15:41
[2025-10-15] MEDS ORDERED: IPRATROPIUM BROM 0.5 MG/2.5ML INH SOL NEB PRN (15:15)
[2025-10-15] MEDS ORDERED: ALBUTEROL SULF 2.5 MG/0.5ML(0.5%) NEB SOLN NEB PRN (15:15)
[2025-10-15] MEDS: ACETAMINOPHEN 325 MG TAB PO PRN (17:19)
[2025-10-15] MEDS: PANTOPRAZOLE 40 MG TAB PO ONE (18:05)
--- NOTE | 2025-10-15 20:37 | DVHINCON2 ---
Date of service: Oct 15, [address] Jose Torres Reason for Consultation Lung cancer, pulmonary nodules. History of Present Illness A 65-year-old woman with past medical history of lung cancer, hypertension, and diabetes mellitus who presented to ED on 10/14/25 for evaluation of shortness of breath. Patient reported worsening shortness for breath with a cough. She reports being diagnosed with possible pulmonary mass last year (2023). She had a biopsy ordered two months ago by her hvac mechanical engineer, which she states showed to be inconclusive. Denies recent weight loss. Reports occasional chills. No chest pain. No other acute complaints reported. On workup, CXR revealed bilateral pulmonary masses c/w metastatic disease. Patient was admitted for further care. Pulmonary consultation is requested for evaluation and management due to pulmonary nodules/lung cancer. Review of Systems: 14-point review of systems negative unless otherwise noted above. Past Medical History: Hypertension, diabetes mellitus, lung cancer Past Surgical History: section Medications: Reviewed. Allergies: No known drug allergies. Family History: Cardiovascular disease Lung disease Osteoporosis Arthritis Prostatitis. Social History: Nonsmoker. No alcohol or illicit drug use. Family History: Arthritis G8 MOTHER Cardiovascular disease G8 MOTHER FH: lung disease AUNT Osteoporosis UNCLE Prostatitis UNCLE Allergies: Coded Allergies: NO KNOWN ALLERGIES (Unverified , 06/30/18) Home Meds Active Scripts Prednisone (Prednisone) 20 Mg Tab, 60 MG PO DAILY for 14 Days, #14 MG Prov:JALEN SKINNER [facility] 07/12/24 Cephalexin (KEFLEX CAPSULE) 250 Mg Cp, 1 CAP PO QID for 5 Days, #28 CAP Prov:JALEN SKINNER [facility] 07/12/24 Pantoprazole Sodium Sesquihydr (Pantoprazole Sodium) 40 Mg Tab, 40 MG PO DAILY for 30 Days, #30 TAB Prov:JALEN SKINNER [facility] 07/12/24 Azithromycin (ZITHROMAX TABLET) 250 Mg Tb, 250 MG PO DAILY for 5 Days, #5 TAB Prov:JALEN SKINNER [facility] 07/12/24 Losartan Potassium (Losartan Potassium) 50 Mg Tab, 50 MG PO DAILY for 30 Days, #30 TAB Prov:JALEN SKINNER [facility] 07/12/24 Ergocalciferol (VITAMIN D 12426 UNIT) 50,000 [place], [address] UNIT PO Q7D for 30 Days, #10 CAP Prov:JALEN SKINNER RES[facility] 07/12/24 Aspirin (Aspirin Low Dose) 81 Mg Tab, 81 MG PO DAILY for 30 Days, #30 TAB Prov:JALEN SKINNER RESIDENT 07/12/24 Acetaminophen (Acetaminophen) 325 Mg Tab, 650 MG PO Q6HP PRN for 10 Days, #80 TAB Prov:JALEN SKINNER RESIDENT 07/12/24 Reported Medications Metformin Hydrochloride (Metformin Hcl) 1,000 Mg Tab, 1 TAB PO BID, #60 TAB 5 Refills 10/15/25 Current Medications Current Medications Medications (Trade) Dose Ordered Sig/Nicole Route PRN Reason Start Time Stop Time Status Last Admin Losartan Potassium (Cozaar Tablet) 50 mg DAILY PO 10/15/25 10:00 10/15/25 11:18 Aspirin 81 mg DAILY PO 10/15/25 10:00 10/15/25 11:17 Diagnostic Test (Pha) (Accu-Chek Comfort Curve T) 1 strip ACHS 10/14/25 22:00 10/15/25 17:20 Insulin Human Regular (InsuLIN R) ACHS SC 10/14/25 22:00 10/15/25 17:19 Pantoprazole Sodium (Protonix Tablet) 40 mg DAILY@0600 PO 10/16/25 06:00 Ipratropium [place] (Atrovent Medneb) 0.5 mg Q6HPRN PRN NEB SHORTNESS OF BREATH 10/15/25 15:15 Albuterol (Ventolin Medneb) 2.5 mg Q6HPRN PRN NEB SHORTNESS OF BREATH 10/15/25 15:15 Insulin Glargine (Lantus) 10 units HS SC 10/15/25 22:00 Vital Signs Vital Signs Date Time Temp Pulse Resp B/P (MAP) Pulse Ox O2 Delivery O2 Flow Rate FiO2 10/15/25 20:14 97 Room Air* 0 21 10/15/25 16:10 97.6 100 121/80 (94) 97.6 10/15/25 13:00 16 Physical Exam Gen.: Patient lying in bed in no apparent distress. Breathing on room air. Head: Normocephalic, atraumatic. Eyes: EOMI/PERRLA. Ears: Normal hearing. Normal anatomy. Neck/trachea: Trachea midline, supple. Nose: Normal external anatomy. Mouth: Moist mucous membranes. Chest: Decreased air entry bilaterally. No wheezing or rhonchi. Cardiovascular: Positive S1, positive S2. Regular rate and rhythm. Abdomen: Positive bowel sounds in all 4 quadrants. Soft, non-tender, non- distended. : Deferred. Rectal: Deferred. Skin: Warm, dry. Intact. Extremities: 2+ radial pulses bilaterally. No lower extremity edema. Neuro: Awake, alert, oriented x3. No gross motor or sensory deficits. Cranial nerves II through XII intact. Gait not assessed. Labs/Diagnostic Data Labs Test 10/15/25 17:05 10/15/25 09:24 10/15/25 09:18 10/15/25 03:16 Range/Units POC Glucose 296 H 70-106 mg/dl Influenza Type A Antigen Negative Negative Influenza Type B Antigen Negative Negative SARS-CoV-2 Antigen (Rapid) Negative NEGATIVE Prothrombin Time 11.3 9.3-11.8 sec Prothrombin Time INR 1.07 0.9-1.15 Activated Partial Thromboplast Time 28.2 24.5-34.5 SEC Hemoglobin A1c 7.3 H <5.7 % A1C Total Bilirubin 1.4 H 0.2-1.0 mg/dL Direct Bilirubin 0.4 H <0.3 mg/dL Aspartate Amino Transferase (AST) 10 L 13-40 U/L Alanine Aminotransferase (ALT) 11 7-40 U/L Alkaline Phosphatase 79 46-116 U/L Total Protein 7.9 5.7-8.2 g/dL Albumin 4.6 3.2-4.8 g/dL Urine Color Yellow Yellow Urine Clarity Clear Clear Urine pH 5.5 5.0-9.0 Urine Specific [place] 1.028 1.001-1.035 Urine Protein 1+ H Negative Urine Ketones Trace Negative Urine Blood Negative Negative /uL Urine Nitrite Negative Negative Urine Bilirubin Negative Negative Urine Urobilinogen Normal Negative mg/dL Urine Leukocyte Esterase Negative Negative /uL Urine RBC 2 0 - 4 /hpf Urine Microscopic WBC 3 0-5 /HPF Urine Squamous Epithelial Cells None seen <5 /hpf Urine Bacteria None seen None Seen /hpf Urine Hyaline Casts Mod 0 - 2 /lpf Urine Mucus Few None Seen Urine Glucose Trace Normal mg/dL Test 10/14/25 22:19 10/14/25 16:46 10/14/25 15:55 Range/Units D-Dimer, Quantitative 2.27 H 0.0-0.49 mg/L FEU Lactic Acid Level 1.4 0.4-2.0 mmol/L Troponin I High Sensitivity 3 L </=34 ng/L White Blood Count 9.7 4.4-10.8 10^3/uL Red Blood Count 4.48 4.0-5.20 10^6/uL Hemoglobin 13.4 12.2-16.2 g/dL Hematocrit 38.3 36.0-46.0 % Mean Corpuscular Volume 85.3 80.0-100.0 fL Mean Corpuscular Hemoglobin 29.9 28.0-32.0 pg Mean Corpuscular Hemoglobin Concent 35.1 32.0-36.0 g/dL Red Cell Distribution Width 13.3 11.8-14.3 % Platelet Count 246 140-450 10^3/uL Mean Platelet Volume 8.8 6.9-10.8 fL Neutrophils (%) (Auto) 70.9 37.0-80.0 % Lymphocytes (%) (Auto) 19.6 10.0-50.0 % Monocytes (%) (Auto) 8.5 0.0-12.0 % Eosinophils (%) (Auto) 0.3 0.0-7.0 % Basophils (%) (Auto) 0.7 0.0-2.0 % Neutrophils # (Auto) 6.9 1.6-8.6 10 ^3/uL Lymphocytes # (Auto) 1.9 0.4-5.4 10 ^3/uL Monocytes # (Auto) 0.8 0-1.3 10 ^3/uL Eosinophils # (Auto) 0 0-0.8 10 ^3/uL Basophils # (Auto) 0.1 0-0.2 10 ^3/uL Nucleated Red Blood Cells 0.0 % Sodium Level 136 136-145 mmol/L Potassium Level 4.3 3.5-5.1 mmol/L Chloride Level 99 98-107 mmol/L Carbon Dioxide Level 29 20-31 mmol/L Anion Gap 8 5-15 Blood Urea Nitrogen 11 9-23 mg/dL Creatinine 0.79 0.550-1.02 mg/dL Glomerular Filtration Rate Calc 84 >90 mL/min BUN/Creatinine Ratio 13.9 10.0-20.0 Serum Glucose 302 H 74-106 mg/dL Calcium Level 9.6 8.7-10.4 mg/dL Assessment Impression: Acute hypoxic respiratory failure Lung cancer Pulmonary nodules Pleural effusion, left Mediastinal lymphadenopathy Atelectasis Obesity Plan: Supplemental oxygen PRN Titrate to keep O2 sats above 92%. Patient c/o persistent cough Denies shortness of breath. CT chest/abd-pelvis with contrast reveals multiple pulmonary masses/nodules c/w pulmonary neoplasm/metastatic disease, left upper and lower lobe airspace consolidation, likely secondary to underlying bronchial obstruction from the pulmonary masses. IR has been consulted for biopsy Note, prior biopsy done at [place]. CTA negative for pulmonary embolism. Continue bronchodilators. Antitussive PRN Incentive spirometry Accu-Cheks, ISS. Monitor renal function. Monitor electrolytes. Supplement as necessary. Monitor ins and outs. Recommend diet and lifestyle modifications for weight reduction Obesity complicates all care GI/DVT prophylaxis. Prognosis: Poor given patient's multiple co-morbidities. Rest of plan per hospitalist and other consultants. Thank you, Dr. Jose Torres, for allowing me to participate in this patient's care. Further recommendations will depend on the patient's clinical course. Please do not hesitate to contact me if you have any questions or concerns. This medical document was created using an electronic medical record system with [employer] dictation system. Although these documentations are being carefully reviewed, there may still be some phonetic and typographical changes. The errors are purely typographical, due to imperfection on the software program, and do not reflect any compromise in the patient's medical care. Plan discussed with: Patient, Other (RN/MD) Visit Coding Pulmonary Billing Provider: RUSS PABLO MD Date of Service if different f: Oct 15, 2025 Common Visit Codes: 77083-ZIUZFCL INP/OBS CARE (HIGH) RUSS PABLO MD Oct 15, 2025 20:37
[2025-10-15] MEDS: INSULIN LANTUS (GLARGINE) 1 /0.01ml (100units/ml) SC SCH (21:43)
[2025-10-15] MEDS: guaiFENesin-DM 100/10mg/5ml SYR PO ONE (22:51)
[2025-10-16] VITALS (7 sets, daily range): BP systolic 111–126; BP diastolic 83–91; PULSE 95–101; RESP 20; TEMP 97.3–99; O2SAT 95–97
[2025-10-16] MEDS: PANTOPRAZOLE 40 MG TAB PO SCH (05:44)
[2025-10-16 06:58] LABS: Hematocrit 36.4 % (36.0-46.0); Hemoglobin 12.8 g/dL (12.2-16.2); Mean Corpuscular Hemoglobin 30.1 pg (28.0-32.0); Mean Corpuscular Volume 86.1 fL (80.0-100.0); Nucleated Red Blood Cells % 0.0 %
--- NOTE | 2025-10-16 06:59 | ECG ---
[facility] Test Date: 2025-10-14 Test Time: 14:22:54 Pat Name: ISH CHACON Department: ED Room: 0298 B Gender: F Shear Setter: KELLY : 1960 Requested By: VAN CHARLES Order Number: [id number] Reading MD: Joni Sheffield Measurements Intervals [place] Rate: 118 P: 32 TX: 167 QRS: 2 QRSD: 92 T: 34 QT: 326 QTc: 457 Interpretive Statements Sinus tachycardia Left atrial enlargement Baseline wander in lead(s) V5 Electronically Signed On 10-18-2025 10:27:12 PST by Joni Sheffield Please click the below link to view image of tracing.
[2025-10-16 07:14] LABS: Anion Gap 10 (5-15); Carbon Dioxide 28 mmol/L (20-31); Chloride 99 mmol/L (98-107); Potassium 3.6 mmol/L (3.5-5.1); Sodium 137 mmol/L (136-145)
[2025-10-16 07:16] LABS: Calcium 9.3 mg/dL (8.7-10.4)
[2025-10-16 07:20] LABS: BUN/Creatinine Ratio 13.4 (10.0-20.0); Blood Urea Nitrogen 9 mg/dL (9-23)
[2025-10-16 07:22] LABS: Glucose 231 mg/dL (74-106)
[2025-10-16] MEDS: INSULIN LISPRO (HUMAN) 100 UNITS/ML ML SC SCH (11:40)
--- NOTE | 2025-10-16 14:03 | DVHDSRES ---
Discharge Summary Date of Admission Resident Creating Document: MORRIS MURILLO RESIDENT Oct 14, 2025 at 19:45 Date of Discharge: Oct 16, 2025 Admitting Diagnosis Acute cough and shortness of breath likely due to Pulmonary Neoplasm Wounds: No open wound was present Labs/Diagnostic Data: Laboratory Results Test 10/16/25 11:37 10/16/25 05:49 10/15/25 09:24 10/15/25 09:18 POC Glucose 203 mg/dl (70-106) White Blood Count 7.4 10^3/uL (4.4-10.8) Red Blood Count 4.23 10^6/uL (4.0-5.20) Hemoglobin 12.8 g/dL (12.2-16.2) Hematocrit 36.4 % (36.0-46.0) Mean Corpuscular Volume 86.1 fL (80.0-100.0) Mean Corpuscular Hemoglobin 30.1 pg (28.0-32.0) Mean Corpuscular Hemoglobin Concent 35.0 g/dL (32.0-36.0) Red Cell Distribution Width 13.1 % (11.8-14.3) Platelet Count 237 10^3/uL (140-450) Mean Platelet Volume 8.9 fL (6.9-10.8) Neutrophils (%) (Auto) 70.7 % (37.0-80.0) Lymphocytes (%) (Auto) 19.6 % (10.0-50.0) Monocytes (%) (Auto) 7.8 % (0.0-12.0) Eosinophils (%) (Auto) 1.6 % (0.0-7.0) Basophils (%) (Auto) 0.3 % (0.0-2.0) Neutrophils # (Auto) 5.2 10 ^3/uL (1.6-8.6) Lymphocytes # (Auto) 1.5 10 ^3/uL (0.4-5.4) Monocytes # (Auto) 0.6 10 ^3/uL (0-1.3) Eosinophils # (Auto) 0.1 10 ^3/uL (0-0.8) Basophils # (Auto) 0 10 ^3/uL (0-0.2) Nucleated Red Blood Cells 0.0 % Sodium Level 137 mmol/L (136-145) Potassium Level 3.6 mmol/L (3.5-5.1) Chloride Level 99 mmol/L (98-107) Carbon Dioxide Level 28 mmol/L (20-31) Anion Gap 10 (5-15) Blood Urea Nitrogen 9 mg/dL (9-23) Creatinine 0.67 mg/dL (0.550-1.02) Glomerular Filtration Rate Calc 98 mL/min (>90) BUN/Creatinine Ratio 13.4 (10.0-20.0) Serum Glucose 231 mg/dL (74-106) Calcium Level 9.3 mg/dL (8.7-10.4) Influenza Type A Antigen Negative (Negative) Influenza Type B Antigen Negative (Negative) SARS-CoV-2 Antigen (Rapid) Negative (NEGATIVE) Prothrombin Time 11.3 sec (9.3-11.8) Prothrombin Time INR 1.07 (0.9-1.15) Activated Partial Thromboplast Time 28.2 SEC (24.5-34.5) Hemoglobin A1c 7.3 % A1C (<5.7) Total Bilirubin 1.4 mg/dL (0.2-1.0) Direct Bilirubin 0.4 mg/dL (<0.3) Aspartate Amino Transferase (AST) 10 U/L (13-40) Alanine Aminotransferase (ALT) 11 U/L (7-40) Alkaline Phosphatase 79 U/L (46-116) Total Protein 7.9 g/dL (5.7-8.2) Albumin 4.6 g/dL (3.2-4.8) Test 10/15/25 03:16 10/14/25 22:19 10/14/25 16:46 Urine Color Yellow (Yellow) Urine Clarity Clear (Clear) Urine pH 5.5 (5.0-9.0) Urine Specific [place] 1.028 (1.001-1.035) Urine Protein 1+ (Negative) Urine Ketones Trace (Negative) Urine Blood Negative /uL (Negative) Urine Nitrite Negative (Negative) Urine Bilirubin Negative (Negative) Urine Urobilinogen Normal mg/dL (Negative) Urine Leukocyte Esterase Negative /uL (Negative) Urine RBC 2 /hpf (0 - 4) Urine Microscopic WBC 3 /HPF (0-5) Urine Squamous Epithelial Cells None seen /hpf (<5) Urine Bacteria None seen /hpf (None Seen) Urine Hyaline Casts Mod /lpf (0 - 2) Urine Mucus Few (None Seen) Urine Glucose Trace mg/dL (Normal) D-Dimer, Quantitative 2.27 mg/L FEU (0.0-0.49) Lactic Acid Level 1.4 mmol/L (0.4-2.0) Troponin I High Sensitivity 3 ng/L (</=34) Other Laboratory Tests 10/16/25 05:49 Brief Hx & Hospital Course: Ms. Mcgee is a 65-year-old female with prior medical history of type 2 diabetes mellitus, hyperlipidemia, and GERD, who presents today with chief complaint of cough and shortness of breath. The patient states she underwent a biopsy for a lung mass at [facility] 2 months ago, which was inconclusive, and since then has had persistent cough. She refers that in the last week the cough has gotten progressively worse, with increased clear phlegm expectoration, and shortness of breath on exertion. Additionally refers subjective fever and generalized weakness. She denies chest pain, nausea, vomiting, palpitations, hemoptysis, weight loss, and decreased appetite. Due to persistence of symptoms she presented to the ED for evaluation. On evaluation in the ED, she is afebrile, tachycardic, slightly hypertensive, saturating adequately on room air. Initial labs significant for hyperglycemia and slightly elevated total bilirubin. Chest xray is significant for bilateral pulmonary masses consistent with metastatic disease. The patient was admitted for further work up and monitoring. Hospital course: Patient was initially presented with shortness of breath, cough and tachycardia. D-dimer was mildly elevated and CT chest/abdomen/pelvis: multiple pulmonary masses / nodules most pronounced in the left lung measuring up to 6 cm consistent with pulmonary neoplasm/ metastatic disease, left upper and lower lung airspace consolidation likely secondary to underlying bronchial obstruction from the pulmonary masses, tiny left pleural effusion. PE was ruled out and IR was consulted for lung mass biopsy. Patient was on aspirin and IR mentioned 5 days is required after stopping the medication before proceeding with the procedure and rescheduled on Tuesday. she wants to celebrate the holiday with family and wants to do outpatient lung biopsy. Discharge plan was discussed with the patient and all questions were answered. Patient is being discharged to home and advised to continue home medications, follow up with DC clinic in 1 week. Examination General: The patient alert and oriented in person place and time. Patient following commands HEENT: Normocephalic, atraumatic, normal reactive pupils, EOM intact, pink conjunctiva, pink moist mucous membrane Respiratory/pulmonary: Bilateral chest expansion, no pain on palpation of chest wall, wheezing is heard in bilateral lung patton, decreased breath sounds in lower lung field Cardiovascular: Normal RRR, normal S1 and S2, no murmurs Abdomen: Abdomen nondistended, normal bowel sounds, soft, there is no pain to palpation in any of the abdominal quadrants, no palpable masses. Extremities: No deformities, there is no peripheral edema present at the lower extremities, normal pulses Skin: No rashes or pruritus, there is no sacral edema present at this time. Neurological: Intact cranial nerves with no focal neurologic deficits Consults/Reason for consult IR and pulmonology were consulted Operations or Procedures INDICATION: Possible metastatic disease FINDINGS: No evidence for large defect within the main left and right pulmonary arteries. Trachea patent. No pneumothorax. Numerous pulmonary nodules / masses consistent with malignancy / metastatic disease. Some of these include right upper lobe lesion measuring 3.9 cm, right hilar/ infrahilar lesion measuring 3.6 cm, right lower lobe lesion measuring 2.8 cm, right upper lobe lesion measuring 1.8 cm left lower lobe mass measuring 6.0 cm, left upper lobe mass measuring 5.5 cm. The left pulmonary mass encases the left main pulmonary artery, bronchi. There is left upper and lower lobe airspace consolidation , likely secondary to underlying malignancy/ bronchial obstruction. Heart normal in size.There is a tiny left pleural effusion. 1.9 cm subcarinal lymph node. No supraclavicular or axillary lymphadenopathy. 1.1 cm indeterminate left adrenal nodule. Right adrenal gland unremarkable. Spleen, pancreas unremarkable. No enhancing hepatic lesion. No CT evidence for cholelithiasis. No hydronephrosis. Small hiatal hernia. Small bowel loops are normal in caliber. Moderate volume stool in the colon. No secondary signs for appendicitis. Abdominal aortic atherosclerotic disease. Mild eccentric mural wall thrombus. Bladder partially distended. Prominent periuterine veins. No free pelvic fluid. No inguinal lymphadenopathy. [id number] bilateral sacroiliac degenerative joint disease. IMPRESSION: Multiple pulmonary masses / nodules most pronounced in the left lung measuring up to 6.0 cm consistent with pulmonary neoplasm/ metastatic disease. Left upper and lower lobe airspace consolidation likely secondary to underlying bronchial obstruction from the pulmonary masses. Tiny left pleural effusion. Mediastinal lymphadenopathy Indeterminate left adrenal nodule measuring 1.1 cm. Recommend MRI abdomen, adrenal mass protocol to further characterize. No evidence for large pulmonary embolism. CHEST RADIOGRAPH INDICATION: sob TECHNIQUE: Single frontal view of the chest was obtained COMPARISON: [facility]-X-RAY, CHEST PA on DOS: 10/04/25, XY CHEST PORTABLE on DOS: 07/10/24, CHEST PORTABLE on DOS: 09/09/20 FINDINGS: Lines and Tubes: None Lungs: Bilateral pulmonary masses are noted consistent with metastatic disease. Previous chest x-rays are not available for comparison. There is a previous report noting the bilateral masses however measurements were not made. Pleura: No effusion. No pneumothorax. Cardiomediastinal contours: Unremarkable Bones: No acute osseous abnormality. IMPRESSION: 1. Bilateral pulmonary masses consistent with metastatic disease Condition at Discharge: Guarded Final Diagnosis/Problems List Acute cough and shortness of breath likely due to Pulmonary Neoplasm Left Pleural effusion Pulmonary embolism, ruled out Type 2 diabetes mellitus with hyperglycemia, HbA1c 7.3 Hypertensive heart disease GERD Discharge Disposition: Home Discharge Instruct/Medications Diet: Regular Activity: No Restrictions, As Tolerated Follow Up/Referral: Follow up with DC clinic in 1 week. Medications: As per EMR Scheduled Ergocalciferol (Vitamin D 69873 Unit), 50,000 UNIT PO Q7D Losartan Potassium (Losartan Potassium), 50 MG PO DAILY Metformin Hydrochloride (Metformin Hcl), 1 TAB PO BID, (Reported) Pantoprazole Sodium Sesquihydr (Pantoprazole Sodium), 40 MG PO DAILY Scheduled PRN Acetaminophen (Acetaminophen), 650 MG PO Q6HP PRN Discontinued Medications Aspirin (Aspirin Low Dose), 81 MG PO DAILY Azithromycin (Zithromax Tablet), 250 MG PO DAILY Cephalexin (Keflex Capsule), 1 CAP PO QID Prednisone (Prednisone), 60 MG PO DAILY Discharge Statement: "Patient was advised to return to the ER or call 911 if any headaches, dizziness, shortness of breath, chest pain, abdominal pain, bleeding, fevers, or worsening of medical condition. Patient was counseled about treatment plan, medications, possible side effects, patientverbalized understanding. All questions were answered to the best of my ability. This discharge took greater then 30 minutes in planning, reviewing documentation, counseling the patient, and discussing with other team members." ASSESSMENT ASSESSMENT Assessment Acute cough and shortness of breath likely due to Pulmonary Neoplasm Visit Coding STANDARD RES Billing Provider: CORNELIO HALEY MD Date of Service if different f: Oct 16, 2025 Common Visit Codes: 20105-NRX/OBS DISCH DAY >30min MORRIS MURILLO RESIDENT Oct 16, 2025 14:03 CORNELIO HALEY MD Oct 18, 2025 23:56
--- NOTE | 2025-10-16 23:50 | DVHPN2 ---
Subjective DOS: 10/16/2025 Patient seen and examined at bedside. Breathing comfortably on room air. Overnight events reviewed. Changes from previous H/P or p: No Changes Objective Vitals Vital Signs Date Time Temp Pulse Resp B/P (MAP) Pulse Ox O2 Delivery O2 Flow Rate FiO2 10/16/25 13:30 97.8 95 20 97 10/16/25 13:00 126/91 (103) 10/16/25 10:00 Room Air* 0 21 Intake/Output Intake and Output 10/16/25 07:00 Intake Total 255 ml Balance 255 ml Intake Oral 255 ml # Voids 2 Exam Gen.: Patient lying in bed in no apparent distress. Breathing on room air. Head: Normocephalic, atraumatic. Eyes: EOMI/PERRLA. Ears: Normal hearing. Normal anatomy. Neck/trachea: Trachea midline, supple. Nose: Normal external anatomy. Mouth: Moist mucous membranes. Chest: Decreased air entry bilaterally. No wheezing or rhonchi. Cardiovascular: Positive S1, positive S2. Regular rate and rhythm. Abdomen: Positive bowel sounds in all 4 quadrants. Soft, non-tender, non- distended. : Deferred. Rectal: Deferred. Skin: Warm, dry. Intact. Extremities: 2+ radial pulses bilaterally. No lower extremity edema. Neuro: Awake, alert, oriented x3. No gross motor or sensory deficits. Cranial nerves II through XII intact. Gait not assessed. Medications Current Medications Medications Dose Ordered Sig/Nicole Route Start Time Stop Time Status Last Admin Dose Admin Albuterol 2.5 mg Q6HPRN PRN NEB 10/14/25 19:45 Cancel Ipratropium [place] 0.5 mg Q6HPRN PRN NEB 10/14/25 19:45 Cancel Laboratory Results Laboratory Tests 10/16/25 05:49 Chemistry Test 10/16/25 05:49 Calcium Level 9.3 mg/dL (8.7-10.4) Urinalysis Test 10/15/25 03:16 Urine Color Yellow (Yellow) Urine Clarity Clear (Clear) Urine pH 5.5 (5.0-9.0) Urine Specific [place] 1.028 (1.001-1.035) Urine Protein 1+ (Negative) H Urine Ketones Trace (Negative) Urine Blood Negative /uL (Negative) Urine Nitrite Negative (Negative) Urine Bilirubin Negative (Negative) Urine Urobilinogen Normal mg/dL (Negative) Urine Leukocyte Esterase Negative /uL (Negative) Urine RBC 2 /hpf (0 - 4) Urine Microscopic WBC 3 /HPF (0-5) Urine Squamous Epithelial Cells None seen /hpf (<5) Urine Bacteria None seen /hpf (None Seen) Urine Hyaline Casts Mod /lpf (0 - 2) Urine Mucus Few (None Seen) Urine Glucose Trace mg/dL (Normal) Microbiology Microbiology Date/Time Source Procedure Growth Status 10/15/25 23:00 Nose MRSA Screen - Final Complete Assessment/Plan Assessment/Plan Impression: Acute hypoxic respiratory failure Lung cancer Pulmonary nodules Pleural effusion, left Mediastinal lymphadenopathy Atelectasis Obesity Events: Breathing on room air Supplemental oxygen PRN No acute overnight events. Patient is planned for lung biopsy by IR on Tuesday. Continue bronchodilators. Antitussive PRN Incentive spirometry Patient is stable for discharge from the pulmonary standpoint. Follow up with Dr. Delfino Wright in 2 to 3 weeks. Labs and imaging reviewed. Rest of plan as noted below. Plan: Supplemental oxygen PRN Titrate to keep O2 sats above 92%.. CT chest/abd-pelvis with contrast reveals multiple pulmonary masses/nodules c/w pulmonary neoplasm/metastatic disease, left upper and lower lobe airspace consolidation, likely secondary to underlying bronchial obstruction from the pulmonary masses. IR has been consulted for biopsy Note, prior biopsy done at [place]. CTA negative for pulmonary embolism. Continue bronchodilators. Antitussive PRN Incentive spirometry Accu-Cheks, ISS. Protonix for GI prophylaxis Monitor renal function. Monitor electrolytes. Supplement as necessary. Monitor ins and outs. Recommend diet and lifestyle modifications for weight reduction Obesity complicates all care GI/DVT prophylaxis. Prognosis: Poor given patient's multiple co-morbidities. Rest of plan per hospitalist and other consultants. Thank you, Dr. Jose Torres, for allowing me to participate in this patient's care. Further recommendations will depend on the patient's clinical course. Please do not hesitate to contact me if you have any questions or concerns. This medical document was created using an electronic medical record system with [employer] system. Although these documentations are being carefully reviewed, there may still be some phonetic and typographical changes. The errors are purely typographical, due to imperfection on the software program, and do not reflect any compromise in the patient's medical care. Plan discussed with: Patient, Other (RN Teresa) Visit Coding Pulmonary Billing Provider: RUSS PABLO MD Date of Service if different f: Oct 16, 2025 Common Visit Codes: [id number] INP/OBS CARE(HIGH) RUSS PABLO MD Oct 16, 2025 23:50
== END 2025-10-16 15:49 | disposition home or self-care (01) | DRG 136 ==
LOC: ER 14:11 → OVERFLOW 19:45 → WEST WING 10-15 15:58
PROVIDERS: ADMIT Student in an Organized Health Care Education/Training Program; ATTEND Student in an Organized Health Care Education/Training Program
DX: C34.12 Malignant neoplasm of upper lobe, left bronchus or lung (principal); J96.01 Acute respiratory failure with hypoxia; J90 Pleural effusion, not elsewhere classified; E11.65 Type 2 diabetes mellitus with hyperglycemia; E66.9 Obesity, unspecified; I11.9 Hypertensive heart disease without heart failure; Z20.822 Contact with and (suspected) exposure to COVID-19; K21.9 Gastro-esophageal reflux disease without esophagitis; J98.11 Atelectasis; R59.0 Localized enlarged lymph nodes; E78.5 Hyperlipidemia, unspecified; Z82.62 Family history of osteoporosis; Z82.49 Family history of ischemic heart disease and other diseases of the circulatory system; Z82.61 Family history of arthritis; Z68.31 Body mass index [BMI] 31.0-31.9, adult
CPT/HCPCS: 36415; 71045; 71260; 74177; 80048; 80076; 81001; 82962; 83036; 83605; 84484; 85025; 85379; 85610; 85730; 87081; 87426; 87804; 93005; 94640; G0378; J1815